=== PATIENT | female | born 2000 | race Caucasian/White ===

== ENCOUNTER 2023-12-30 18:26 | Emergency (ER) | payer OTHER, SELFPAY ==
[2023-12-30 18:40] VITALS: BP 108/79; BP 110/88; PULSE 66; PULSE 70; RESP 16; TEMP 36.7; O2SAT 98; O2SAT 99
--- NOTE | 2023-12-30 19:51 | ED.ABDPAIN ---
HPI - Abdominal Pain General Chief Complaint: Abdominal Pain Stated Complaint: abd pain, right eye blurriness, hx migraine Time Seen by Provider: 12/30/23 19:39 Source: patient, EMS, RN notes reviewed and old records reviewed Mode of arrival: EMS History of Present Illness ED Provider: Mary Carbajal PA-C HPI narrative: 23-year-old female with a past medical history of migraines presenting to the ED complaining of lower abdominal pain/cramping and nausea [employer]. Admits symptoms started this morning with typical migraine headache with associated right eye blurry vision, which is typical for her migraines per patient. AGARWAL not maximal at onset. Admits took Sumatriptan for the 1st time which resolved migraine, denies headache or vision changes at present. Reports abdominal pain is improved at present. Denies fever, chills, vomiting, diarrhea, dysuria/hematuria, vaginal bleeding/discharge. Related Data Allergies Allergy/AdvReac Type Severity Reaction Status Date / Time anti nausea medication Allergy Shakiness Uncoded 12/30/23 18:47 Review of Systems Review of Systems Constitutional: No Fever, No Chills ENT/Mouth: No Ear Pain, No Nasal Congestion, No sore throat, No Rhinorrhea, No Swallowing Difficulty Eye: + visual changes (resolved) Cardiovascular: No Chest Pain, No SOB Respiratory: No Cough Gastrointestinal: + Nausea, No Vomiting, No Diarrhea, No Constipation, + Abdominal pain Genitourinary: No Dysuria, No Urinary Frequency, No Hematuria, No Urinary Incontinence/retention, No Flank Pain Musculoskeletal: No joint pain, No Myalgias, No Joint Swelling Skin: No Skin Lesions, No rash Neuro: No Weakness, No Numbness, No Paresthesias, +AGARWAL (resolved) Yes all other systems are reviewed and are negative Constitutional: Reports as per HPI [facility] Past Medical History Attestation statement: The following information was validated with the patient. Source: old records reviewed Social History Social History Alcohol intake: current Alcohol intake frequency: holidays/special occasions only Smoked in Last 30 Days: No Use of substances other than those prescribed or required for medical reasons: Yes Substance Use Type: Marijuana Substance Use Frequency: Occasionally Advance Directives: No Advance Directives Information Provided: No Patient : No Physical Exam ED Vital Signs: Vital Signs - 24 hr 12/30/23 18:40 12/30/23 20:03 12/30/23 20:39 Temperature 98.0 F 98.3 F Pulse Rate 66 73 79 Respiratory Rate 16 17 18 Blood Pressure 108/79 112/80 116/76 Pulse Oximetry 98 98 98 Oxygen Delivery Method Room Air Room Air Room Air BMI result Body Mass Index 20.0 Const General: cooperative, healthy appearing and no acute distress Orientation/consciousness: patient oriented x3 Limitations: no limitations HENMT Head: Yes normal to inspection and Yes atraumatic Ears: hearing grossly normal bilaterally General nose exam: Normal external nose present Face and sinus: Yes normal facial exam Eyes General: appearance normal, both eyes and all related structures EOM: EOMs intact bilaterally Neck Neck: Yes normal visual inspection and Yes no meningeal signs Resp Effort & Inspection: normal respiratory effort and no respiratory distress Auscultation: clear to auscultation bilaterally Cardio Rate: regular rate GI Inspection: Yes normal to inspection Palpation (GI): Soft to palpation, nontender, no guarding and not rigid General: Yes no CVA tenderness Back/Spine/Pelvis Back: no CVA tenderness Skin Rashes: no rashes Wounds: no wounds Neuro General: patient oriented x3, tone normal and no meningeal signs Cranial nerves: Yes CN's II-XII intact bilaterally Gait exam (Neuro): Normal gait present Extrem General: Yes normal to inspection Course Course Course Narrative: -UA contaminated, will hold on initiating antibiotics until culture results Medical Decision Making Medical Decision Making MDM Narrative: 23-year-old female with a past medical history of migraines presenting to the ED complaining of lower abdominal pain/cramping and nausea [employer]. Reports symptoms improved/resolved at present. Denies migraine headache. Requesting discharge at this time. On exam vital signs stable, abdomen soft and nontender. Patient tolerating p.o. in the ED. low suspicion for appendicitis/diverticulitis or ovarian torsion or pancreatitis/cholecystitis/lithiasis Plan: UA, urine , would like labs however patient refused Please refer to course for remaining clinical decision making, interpretation of labs/imaging results, and discussions with consultants and/or family members. Results discussed with patient including worrisome signs and symptoms and strict return precautions, and when to return to the emergency department. They verbalized understanding and feel safe for discharge at this time. Differential Diagnosis Differential Diagnoses: The differential diagnosis associated with the presentation includes As above Admission/Observation Consideration of admission/observation: Escalation of care including admission/observation considered Lab Data MDM Lab Attestation statement: I reviewed the patient's lab results. Labs: Lab Results 12/30/23 12/30/23 Range/Units 19:54 19:58 Urine Color Yellow Urine Appearance Cloudy Urine pH 6.5 (5.0-9.0) Ur Specific [place] 1.010 (1.005-1.025) Urine Protein Negative (Neg-Trace) mg/dL Urine Glucose (UA) Negative (Negative) mg/dL Urine Ketones Negative (Negative) mg/dL Urine Blood Negative (Negative) Urine Nitrite Negative (Negative) Ur Leukocyte Esterase Moderate (2+) H (Negative) Urine RBC 0-2 (0-2) /HPF Urine WBC 6-10 H (0-5) /HPF Ur Squamous Epith Cells >20 (0-2) /HPF Urine Bacteria 1+ (None Seen) Hyaline Casts 0-2 (0-2) /LPF Urine Test NEGATIVE (NEGATIVE) External Record Review External record reviewed: Inpatient record, Office record, Outpatient record, Prior outpatient labs, Prior outpatient radiology, Primary care record and Outside ED record Tests considered The following testing was considered but not selected: As above Discharge Plan Discharge Clinical Impression: Abdominal pain Patient Disposition: Home, Self-Care Instructions: Abdominal Pain (ED) Additional Instructions: We will send a urine culture, if this is positive you will be contacted. Your urine was negative Continue home prescribed medications Follow-up with your doctor, if you are unable to eat or drink or develop fever return to the ED Referrals: Physician,Unknown J [Primary Care Provider] - Interventions: ED Discharge Assessment Last Done: 12/30/23 20:39 Discharge Date/Time: 12/30/23 20:38 Print Language: Croatian
[2023-12-30 20:03] VITALS: BP 112/80; PULSE 73; RESP 17; O2SAT 98
[2023-12-30 20:09] LABS: Appearance Urine Cloudy; Color Urine Yellow; Glucose Urine UA Negative (Negative); Leukocyte Esterase Urine Moderate (2+) (Negative); Nitrite Urine Negative (Negative); PH 6.5 (5.0-9.0); UMIC TRIGGER UACC YES; Urine Blood Negative (Negative); Urine Ketones Negative (Negative); Urine Protein Negative (Neg-Trace)
[2023-12-30 20:10] LABS: UPreg QC Valid YES; Urine Pregnancy NEGATIVE (NEGATIVE)
[2023-12-30 20:14] LABS: Bacteria Urine 1+ (None Seen); Hyaline Casts Urine 0-2 /LPF (0-2); RBC Urine 0-2 /HPF (0-2); Squamous Epithelial Cell Urine >20 /HPF (0-2); UACC Culture Trigger YES
[2023-12-30 20:39] VITALS: BP 116/76; PULSE 79; RESP 18; TEMP 36.8; O2SAT 98
== END 2023-12-30 20:38 | disposition home or self-care (01) ==
PROVIDERS: Physician Assistant; Emergency Provider Internal Medicine
DX: R10.30 Lower abdominal pain, unspecified (principal); R51.9 Headache, unspecified
CPT/HCPCS: 81001; 81025; 87086; 99282; 99284